=== PATIENT | male | born 2000 ===

== ENCOUNTER 2020-08-21 14:05 | Emergency (ER) | payer SELFPAY ==
--- NOTE | 2020-08-21 14:29 | Emergency Department Report ---
Chief Complaint: Back Pain/Injury Stated Complaint: LOWER BACK PAINS Time Seen by Provider: 08/21/20 14:19 - HPI History of Present Illness: pt is a 20 yo male who presents to the ED with c/o "kidney pain." he states he has pain in his bilateral flanks. he states he also has chills and sweats. he states he went to [place] last night and was advised that his "WBC were 21k" he states they were awaiting his kidney function results. He states he left before the results came back for his kidney function. he eloped from [place] ED last night. vitals with tachycardia advised pt he would need to have labs, CT, UA, fluids, abx he needs a sepsis work up pt states he is not going to wait for a full workup and just wants to go home he states he does not want to be seen advised pt he would need to leave AMA discussed in detail with pt the risks associated with leaving including , sepsis, serious disability, loss of quality of life he continues stating he would like to leave Gloria cullen PA-C also advised pt to stay the patient is alret and oriented x3. The patient exhibits decision making capacity. the patient is free from distracting injury. the risks of leaving without a complete medical examination, and AGAINST MEDICAL ADVICE, were explained to the patient, and they included , disability, paralysis, permanent loss of quality of life. the patient verbalized understanding to these and was able to articulate these risks in their own words MSE screening note: Focused history and physical exam performed. ED Disposition for MSE Clinical Impression: Chills Back pain Qualifiers: Back pain location: low back pain Chronicity: acute Back pain laterality: unspecified Sciatica presence: unspecified whether sciatica present Qualified Code(s): M54.5 - Low back pain Disposition: DC- LEFT AGAINST MED ADVICE Is pt being admited?: No Does the pt Need Aspirin: No Condition: Undetermined Time of Disposition: 14:28 Print Language: ANGOLAN
[2020-08-21 16:25] VITALS: BP 143/92
== END 2020-08-21 15:00 | disposition left against medical advice (07) ==
LOC: ED 14:05
DX: M54.9 Dorsalgia, unspecified (principal); R68.83 Chills (without fever)
CPT/HCPCS: 99282